=== PATIENT | female | born 1980 | race African-American/Black ===

== ENCOUNTER 2016-08-19 16:36 | Emergency (ER) | payer OTHER ==
[~2016-08-19] VITALS: Ht 160 cm; Wt 100.0 kg
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
[2016-08-19] MEDS ORDERED: SODIUM CHLOR 0.9% 1000 ML INJ 1,000 ML IV SCH (17:19)
[2016-08-19 17:21] VITALS: BP 136/79; PULSE 83; RESP 22; O2SAT 100
[2016-08-19 17:27] VITALS: O2SAT 100
[2016-08-19] MEDS ORDERED: SODIUM CHLORIDE 0.9% FLUSH 5 ML FLUSH IVF PRN (17:30)
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
[2016-08-19] MEDS ORDERED: MOBI15TA PO (18:48)
[2016-08-19 19:10] VITALS: BP 132/80
== END 2016-08-19 19:28 | disposition home or self-care (01) ==
LOC: NEPE 16:36
DX: M25.512 Pain in left shoulder (principal); V18.4XXA Pedal cycle driver injured in noncollision transport accident in traffic accident, initial encounter; Y93.55 Activity, bike riding; Y92.410 Unspecified street and highway as the place of occurrence of the external cause; Y99.9 Unspecified external cause status
CPT/HCPCS: 29240; 73030